=== PATIENT | female | born 1980 | race Caucasian/White ===

== ENCOUNTER → 2017-11-13 | Outpatient (REF) | payer BC ==
[2017-11-13 09:53] LABS: BASO % 0.6 % (0.0-1.0); EOS # 0.1 10^3/uL (0.0-0.50); EOS % 1.3 % (0.0-3.0); HEMATOCRIT 47.2 % (36.0-47.0); HEMOGLOBIN 15.9 g/dl (12.0-16.0); IMMATURE GRANULOCYTE % 0.4 % (0-0); LYMPH # 1.5 10^3/uL (1.5-4.5); LYMPH % 21.7 % (24.0-44.0); MEAN CORPUSCULAR HEMOGLOBIN 31.7 pg (27.0-33.0); MEAN CORPUSCULAR HGB CONC 33.7 g/dl (32.0-36.5); MEAN CORPUSCULAR VOLUME 94.2 fl (80.0-96.0); MONO # 0.4 10^3/uL (0.0-0.8); MONO % 5.5 % (0.0-5.0); NEUTROPHILS % 70.5 % (36.0-66.0); PLATELET COUNT, AUTOMATED 176 10^3/uL (150-450); RED BLOOD COUNT 5.01 10^6/uL (4.00-5.40); RED CELL DISTRIBUTION WIDTH 12.5 % (11.5-14.5)
[2017-11-13 10:25] LABS: ALBUMIN 4.2 GM/DL (3.2-5.2); ALBUMIN/GLOBULIN RATIO 1.31 (1.00-1.93); ALKALINE PHOSPHATASE 49 U/L (45-117); ALT/SGPT 16 U/L (12-78); ANION GAP 7 MEQ/L (8-16); AST/SGOT 18 U/L (7-37); BILIRUBIN,TOTAL 0.8 MG/DL (0.2-1.0); BLOOD UREA NITROGEN 8 MG/DL (7-18); CALCIUM LEVEL 8.9 MG/DL (8.5-10.1); CARBON DIOXIDE LEVEL 27 MEQ/L (21-32); CHLORIDE LEVEL 107 MEQ/L (98-107); CHOLESTEROL LEVEL 219 MG/DL (<200); CHOLESTEROL RISK RATIO 4.659 (<5); CREATININE FOR GFR 0.71 MG/DL (0.55-1.02); FREE T4 1.13 NG/DL (0.76-1.46); GLOMERULAR FILTRATION RATE > 60.0 (>60); GLUCOSE, FASTING 92 MG/DL (70-100); HDL CHOLESTEROL 47 MG/DL (>40); LDL CHOLESTEROL 146.8 MG/DL (<100); NON-HDL-C 172 MG/DL; POTASSIUM SERUM 4.5 MEQ/L (3.5-5.1); SODIUM LEVEL 141 MEQ/L (136-145); TOTAL PROTEIN 7.4 GM/DL (6.4-8.2); TRIGLYCERIDES LEVEL 126 MG/DL (<150)
[2017-11-13 10:50] LABS: MALB URINE SIEMENS 21.1 MG/L; MAU/CREAT RATIO 7.7 MCG/MG (0.0-30.0)
== END ==
LOC: M SFHCCLAY 09:41
DX: Q61.5 Medullary cystic kidney (principal); Z13.220 Encounter for screening for lipoid disorders; R03.0 Elevated blood-pressure reading, without diagnosis of hypertension

== ENCOUNTER → 2017-11-17 | Outpatient (CLI) | payer BC | LOC: M RAD 16:32 | DX: R10.2 Pelvic and perineal pain (principal) ==

== ENCOUNTER → 2017-12-23 | Outpatient (REF) | payer BC | LOC: M SFHCCLAY 09:42 | DX: Z12.4 Encounter for screening for malignant neoplasm of cervix (principal) | CPT/HCPCS: G0123 ==

== ENCOUNTER → 2018-01-01 | Outpatient (CLI) | payer BC | LOC: M RAD 16:31 | DX: Z12.31 Encounter for screening mammogram for malignant neoplasm of breast (principal); Z80.3 Family history of malignant neoplasm of breast; R92.8 Other abnormal and inconclusive findings on diagnostic imaging of breast | CPT/HCPCS: 77067 ==

== ENCOUNTER → 2018-01-08 | Outpatient (CLI) | payer BC | LOC: M RAD 12:57 | DX: R92.8 Other abnormal and inconclusive findings on diagnostic imaging of breast (principal) | CPT/HCPCS: 77065 ==

== ENCOUNTER 2018-03-09 08:47 | Day surgery (SDC) | payer BC ==
[2018-03-09] MEDS: NS 1,000 ML IV (09:00)
[2018-03-09] MEDS ORDERED: LIDOCAINE 2% INJ 100 MG/5 ML SDV (FOR ANES.) As Ordered (10:36)
[2018-03-09] MEDS ORDERED: PROPOFOL 500 MG/50 ML VIAL As Ordered (10:36)
== END 2018-03-09 11:24 | disposition home or self-care (01) ==
LOC: M OPP 08:47
DX: Z12.11 Encounter for screening for malignant neoplasm of colon (principal); Z80.0 Family history of malignant neoplasm of digestive organs; K64.8 Other hemorrhoids; K21.9 Gastro-esophageal reflux disease without esophagitis; Z86.59 Personal history of other mental and behavioral disorders; G43.909 Migraine, unspecified, not intractable, without status migrainosus; Q61.5 Medullary cystic kidney; Z87.442 Personal history of urinary calculi; K44.9 Diaphragmatic hernia without obstruction or gangrene; F17.210 Nicotine dependence, cigarettes, uncomplicated; Z88.8 Allergy status to other drugs, medicaments and biological substances; Z88.1 Allergy status to other antibiotic agents; Z88.5 Allergy status to narcotic agent; Z79.899 Other long term (current) drug therapy; Z80.3 Family history of malignant neoplasm of breast; Z80.49 Family history of malignant neoplasm of other genital organs
CPT/HCPCS: G0105

== ENCOUNTER → 2018-05-25 | Outpatient (CLI) | payer BC | LOC: M RAD 06:54 | DX: N20.0 Calculus of kidney (principal); Q61.5 Medullary cystic kidney | CPT/HCPCS: 74176 ==

== ENCOUNTER → 2018-07-06 | Outpatient (CLI) | payer BC ==
[~2018-07-06] MED LIST: PROHANCE 279.3MG/ML 15ML VIAL (A9576) As Ordered
== END ==
LOC: M RAD 12:52
DX: N60.31 Fibrosclerosis of right breast (principal); N60.32 Fibrosclerosis of left breast
CPT/HCPCS: A9576

== ENCOUNTER → 2019-01-05 | Outpatient (CLI) | payer BC ==
[~2019-01-05] MED LIST changes: +EXCETAB80 PO; +POTA10808; -PROHANCE 279.3MG/ML 15ML VIAL (A9576) As Ordered
--- NOTE | 2019-01-05 16:05 | REPMRS ---
Patient History Family history of breast cancer at age 40 in sister, colorectal cancer at age 58 in mother, endometrial cancer at age 58 in mother. Digital Mammo Diagnostic Bilateral: January 05, 2019 - Exam #: [id number] Bilateral CC and MLO view(s) were taken. Technologist: Sandy Cerna, Technologist Prior study comparison: January 08, 2018, right breast digital mammo diagnostic unilateral performed at [facility]. January 01, 2018, bilateral digital mammo screening bilat performed at [facility]. FINDINGS: The breast tissue is heterogeneously dense. This may lower the sensitivity of mammography. There is mildly asymmetric breast parenchymal density in the upper outer quadrant on the right unchanged from the January 06, 2018 prior study.There is a moderate amount of heterogeneously dense fibroglandular tissue which is otherwisw fairly symmetric. There is no interval development of dominant mass, architectural distortion, or clustered microcalcification typical of malignancy. There has been no change in the appearance of the mammogram from the prior studies. 3-D tomosynthesis shows no additional findings. Assessment: BI-RADS/ACR category 2 mammogram. Benign Findings. Recommendation Breast MRI of both breasts in 6 months. Routine screening mammogram of both breasts in 1 year (for women over age 40). This patient's Lifetime Breast Cancer RIsk is estimated at 20.0 %. Annual screening Breast MRI scanniing is recommended for patient's whose lifetime risk assessment is over 20%. This mammogram was interpreted with the aid of an FDA-approved computer-aided dectection system. Electronically Signed By: Terrance Vasquez MD 01/05/19 [id number]
== END ==
LOC: M RAD 14:52
PROVIDERS: ATTEND Nurse Practitioner Family
DX: Z12.31 Encounter for screening mammogram for malignant neoplasm of breast (principal); Z80.3 Family history of malignant neoplasm of breast; Z80.0 Family history of malignant neoplasm of digestive organs; Z80.49 Family history of malignant neoplasm of other genital organs
CPT/HCPCS: 77066; G0279

== ENCOUNTER → 2019-06-23 | Outpatient (CLI) | payer BC ==
[2019-06-23 14:42] LABS: THYROID STIMULATING HORMONE 1.87 uIU/ML (0.358-3.740)
== END ==
LOC: M LAB 13:27
PROVIDERS: ATTEND Nurse Practitioner Family
DX: R63.5 Abnormal weight gain (principal)

== ENCOUNTER → 2019-06-28 | Outpatient (CLI) | payer BC ==
[~2019-06-28] MED LIST changes: +PROHANCE 279.3MG/ML 15ML VIAL (A9576) As Ordered ONE
--- NOTE | 2019-06-29 07:38 | REP ---
MRI BREAST WITH AND WITHOUT CONTRAST: Lifetime risk of breast cancer 20%. Comparison mammogram 01/05/2019 and MRI breasts 07/06/2018. TECHNIQUE: Multiple sequences obtained in the axial, coronal, and sagittal planes prior to and following the intravenous administration of 12 mL ProHance. Images are evaluated [employer] software including dynamic post-IV gadolinium axial T1 fat sat images, subtraction images, color overlay and CAD images as well as MIP reconstruction images. There is again moderate pattern of fibroglandular tissue bilaterally. Multiple cysts are scattered throughout both breasts. For the most part, these appear unchanged on the right and have decreased in size somewhat on the left. There is no axillary adenopathy. There is mild background parenchymal enhancement bilaterally. No suspicious enhancing mass is seen. No morphologic abnormality is seen. IMPRESSION: BIRADS category 2 benign bilateral breast MRI. Similar findings compared to the prior study. Multiple bilateral breast cysts are present, the cysts on the left appear to have decreased in size somewhat. Once again, I see no evidence of enhancing mass or morphologic abnormality. Yearly supplemental screening MRI of the breast is recommended for patients with lifetime risk of breast cancer 20% or greater. Electronically Signed by Yuri Allen MD 06/30/2019 10:09 A
== END ==
LOC: M RAD 12:32
PROVIDERS: ATTEND Nurse Practitioner Family
DX: Z12.31 Encounter for screening mammogram for malignant neoplasm of breast (principal)

== ENCOUNTER → 2019-10-28 | Outpatient (REF) ==
[~2019-10-28] MED LIST changes: -PROHANCE 279.3MG/ML 15ML VIAL (A9576) As Ordered ONE
== END ==
LOC: M LAB 07:45
PROVIDERS: ATTEND Nurse Practitioner Adult Health
DX: Z02.1 Encounter for pre-employment examination (principal)

== ENCOUNTER → 2020-04-19 | Outpatient (REF) | payer BC | LOC: M SFHCCLAY 14:36 | PROVIDERS: ATTEND Nurse Practitioner Family | DX: Z12.4 Encounter for screening for malignant neoplasm of cervix (principal); R87.610 Atypical squamous cells of undetermined significance on cytologic smear of cervix (ASC-US) | CPT/HCPCS: 87624; G0123 ==

== ENCOUNTER → 2020-07-31 | Outpatient (CLI) | payer BC ==
[2020-07-31 13:17] LABS: BLOOD UREA NITROGEN 14 MG/DL (7-18); CREATININE FOR GFR 0.73 MG/DL (0.55-1.30); GLOMERULAR FILTRATION RATE > 60.0 (>60)
== END ==
LOC: M LAB 12:10
PROVIDERS: ATTEND Nurse Practitioner Family
DX: Q61.5 Medullary cystic kidney (principal)

== ENCOUNTER → 2021-05-07 | Outpatient (REF) | payer BC | LOC: M SFHCCLAY 08:52 | PROVIDERS: ATTEND Nurse Practitioner Family | DX: Z12.4 Encounter for screening for malignant neoplasm of cervix (principal); Z77.9 Other contact with and (suspected) exposures hazardous to health ==

== ENCOUNTER → 2021-10-26 | Outpatient (REF) | LOC: M LABSMTC 09:24 | PROVIDERS: ATTEND Family Medicine | DX: Z20.822 Contact with and (suspected) exposure to COVID-19 (principal) ==

== ENCOUNTER → 2022-08-07 | Outpatient (REF) | payer BC | LOC: M SFHCCLAY 17:09 | PROVIDERS: ATTEND Nurse Practitioner Family | DX: Z12.4 Encounter for screening for malignant neoplasm of cervix (principal) ==

== ENCOUNTER → 2022-09-11 | Outpatient (CLI) | payer BC | LOC: M PLAIMG 10:02 | PROVIDERS: ATTEND Internal Medicine Nephrology | DX: N20.0 Calculus of kidney (principal); Q61.5 Medullary cystic kidney; K57.90 Diverticulosis of intestine, part unspecified, without perforation or abscess without bleeding; I70.0 Atherosclerosis of aorta ==